=== PATIENT | female | born 2005 | race African-American/Black ===

== ENCOUNTER 2025-01-09 00:02 | Emergency (ER) | payer OTHER ==
[~2025-01-09] VITALS: Ht 162.6 cm; Wt 61.5 kg
[2025-01-09 00:35] VITALS: O2SAT 99
[2025-01-09 03:35] VITALS: BP 105/89; PULSE 54; RESP 18; TEMP 36.8; O2SAT 100
== END 2025-01-09 03:35 | disposition home or self-care (01) ==
LOC: ER 01:17
DX: S80.12XA Contusion of left lower leg, initial encounter (principal); V91.83XA Other injury due to other accident to other powered watercraft, initial encounter; Y93.17 Activity, water skiing and wake boarding; Y92.89 Other specified places as the place of occurrence of the external cause; Y99.8 Other external cause status
CPT/HCPCS: 93971; 99284